=== PATIENT | female | born 2005 | race Caucasian/White ===

== ENCOUNTER 2025-03-15 18:12 | Emergency (ER) | payer MEDICARE ==
[~2025-03-15] VITALS: Ht 175.3 cm; Wt 64.1 kg
[2025-03-15 19:27] VITALS: BP 129/88
== END 2025-03-15 19:27 | disposition home or self-care (01) ==
LOC: ED 18:12
DX: S90.31XA Contusion of right foot, initial encounter (principal); X58.XXXA Exposure to other specified factors, initial encounter
CPT/HCPCS: 73630; 99284